=== PATIENT | female | born 1930 | race Caucasian/White ===

== ENCOUNTER 2016-11-29 21:17 | Inpatient (IN) | payer OTHER ==
--- NOTE | 2016-11-29 21:33 | PROVIDER DOCUMENTATION ---
HPI-General Adult - General Stated Complaint: from [facility], abnormal labs, vaginal bleeding Time Seen by Provider: 11/29/16 21:23 Source: patient, EMS Allergies/Adverse Reactions: Patient Allergies Allergy/AdvReac Type Severity Reaction Status Date / Time No Known Allergies Allergy Verified 11/29/16 21:57 Home Medications: Home Medication List Medication Instructions Recorded Confirmed Last Taken Type Acetaminophen [Tylenol] 650 mg PO Q4H PRN PRN 11/29/16 11/29/16 Unknown History Aspirin 81 mg PO DAILY 11/29/16 11/29/16 Unknown History Bisacodyl [Dulcolax] 10 mg AK DIRECTED 11/29/16 11/29/16 Unknown History Carboxymethylcellulos/Glycerin 1 drop BOTH EYES BID 11/29/16 11/29/16 Unknown History [Refresh Optive Eye Drops] Cetirizine [Zyrtec] 10 mg PO DAILY 11/29/16 11/29/16 Unknown History Cran/Vitc/Mannose/Fos/Bromeln 3,875 mg PO BID 11/29/16 11/29/16 Unknown History [Uti-Stat Liquid] Diphenhydramine [Benadryl] 25 mg PO Q6H PRN PRN 11/29/16 11/29/16 Unknown History Docusate Sodium 100 mg PO BID 11/29/16 11/29/16 Unknown History Furosemide [Lasix] 40 mg PO DAILY 11/29/16 11/29/16 Unknown History Glycerin/Witch Eula Cylinder [Medi 1 each TP PRN PRN 11/29/16 11/29/16 Unknown History Pads] Guaifenesin/Pse E.r. [Mucinex D] 1 each PO DAILY 11/29/16 11/29/16 Unknown History Hydrocodone/APAP 10 mg/325 mg 1 each PO TID 11/29/16 11/29/16 Unknown History [[place]-10] Hydrocortisone Acetate [Anucort-Hc] 25 mg AK Q8H PRN PRN 11/29/16 11/29/16 Unknown History Ipratropium/Albuterol Sulfate 3 ml IH TID 11/29/16 11/29/16 Unknown History [Iprat-Albut 0.5-3(2.5) mg/3 ml] Lidocaine 5% Patch [Lidoderm] 1 each TOP DAILY 11/29/16 11/29/16 Unknown History Magnesium Hydroxide [Milk of 30 ml PO QAM PRN PRN 11/29/16 11/29/16 Unknown History Magnesia] Meclizine [Antivert] 25 mg PO DAILY 11/29/16 11/29/16 Unknown History Melatonin 3 mg PO QHS 11/29/16 11/29/16 Unknown History Nitrofurantoin Macrocrystal 100 mg PO BID 11/29/16 11/29/16 Unknown History [Nitrofurantoin] Nystatin Powder [Mycostatin Powder] 1 applicatn TOP BID 11/29/16 11/29/16 Unknown History Ondansetron HCl [Zofran] 4 mg PO Q4H PRN PRN 11/29/16 11/29/16 Unknown History Paroxetine [Paxil] 10 mg PO BID 11/29/16 11/29/16 Unknown History Polyethylene Glycol 3350 [Miralax] 17 gm PO 11/29/16 Unknown History Potassium Chloride E.r. [Klor-Con] 20 meq PO DAILY 11/29/16 11/29/16 Unknown History Pravastatin Sodium 40 mg PO HS 11/29/16 11/29/16 Unknown History Pregabalin [Lyrica] 75 mg PO QHS 11/29/16 11/29/16 Unknown History Simethicone [Gas-X] 250 mg PO PRN PRN 11/29/16 11/29/16 Unknown History - History of Present Illness -Gen Adult Nature of Presenting Problems: Pt is a 86 yof who presents to ER via EMS from care home. EMS was called by care home after pt's labs came back tonight and indicated abnormal results. Pt also complains of vaginal bleeding that she reports started "this afternoon. " Pt denies any pain at this time. Location of Pain/Injury: reports: none Pain Radiation: reports: no radiation Quality of Pain: reports: none Onset/Duration: reports: this afternoon Timing: reports: still present Associated Symptoms: reports: genitourinary problems (vaginal bleeding), trouble walking, other (abnormal lab results). denies: anxiety, arm pain, back/ neck pain, chest pain, constipation, cough, diarrhea, dizziness, EENT symptoms, fatigue, fever/chills, headaches, heartburn, loss of appetite, muscle aches, sinus congestion/drainage, nausea, shortness of breath, swelling/mass in abdomen , vomiting Review of Systems - Adult - REVIEW OF SYSTEMS - ADULT Constitutional: denies: chills, fever, fatique, night sweats Eyes: reports: no symptoms reported Ears, Nose, Mouth & Throat: reports: no symptoms reported Cardiovascular: reports: no symptoms reported Respiratory: reports: no symptoms reported Gastrointestinal: reports: no symptoms reported Genitourinary: reports: other (vaginal bleeding). denies: see HPI, dysuria, discharge, frequency, flank pain, frequent UTI's, hematuria, hesitency, incontinence, urinary retention, urgency Musculoskeletal: reports: no symptoms reported Integumentary: reports: no symptoms reported Neurological: reports: no symptoms reported Psychiatric: reports: no symptoms reported Endocrine: reports: no symptoms reported Hematologic/Lymphatic: reports: no symptoms reported Allergic/Immunologic: reports: no symptoms reported All Other Systems: Reviewed and Negative Past History - Adult - PAST MEDICAL HISTORY-ADULT Review of Records: reports: Nursing Assessment Review, Medications Reviewed Cardiovascular: reports: HTN Additional History: cholesterol, depression, chronic hip pain, - PRIOR SURGERIES/PROCEDURES Surgical/Procedure History: reports: appendectomy, hernia repair, other (ortho, tubal) - IMMUNIZATION STATUS Childhood Immunizations: See Nurse Assessment Flu Vaccine: See Nurse Assessment Physical Exam-General - PHYSICAL EXAM-ADULT Initial Vital Signs Reviewed: Yes - CONSTITUTIONAL General Appearance: appears well, alert, no apparent distress - NECK Neck: non-tender, full range of motion, supple - RESPIRATORY Respiratory: chest non-tender, lungs clear, normal breath sounds - CARDIOVASCULAR Cardiovascular: normal peripheral pulses, regular rate, rhythm - NEUROLOGIC Neurologic: grossly normal, no motor/sensory deficits - PSYCHIATRIC Psych/Mental Status: normal mood/affect, normal thought content, normal thought process, oriented x 3 Progress - PLAN OF CARE/RESULTS Progress/Plan/Lab Results: 2322: Pt's CT results came back, indicating pt has diverticulosis. Dr. Josh mott hospitalist. Vital Signs - 24 hr 11/29/16 11/29/16 21:28 23:08 Temperature 98.8 F Pulse Rate 83 84 Respiratory 14 18 Rate Blood Pressure 110/67 138/65 O2 Sat by Pulse 98 98 Oximetry Orders Category Date Time Status Cardiac Monitoring DIRECTED Care 11/29/16 21:29 Active Saline Loc NOW Care 11/29/16 21:29 Active ABDOMEN/PELVIS W/O CONTRAST [CT] Stat Exams 11/29/16 21:30 Taken AMYLASE [CHEM] Stat Lab 11/29/16 21:40 Completed ANTIBODY IDENTIFICATION [BBK] Stat Lab 11/29/16 21:40 Results CBC WITH ELECTRONIC DIFF [HEME] Stat Lab 11/29/16 21:40 Completed CK PROFILE [SP CHEM] Stat Lab 11/29/16 21:40 Completed COMPREHENSIVE METABOLIC PANEL [CHEM] Stat Lab 11/29/16 21:40 Completed LIPASE [CHEM] Stat Lab 11/29/16 21:40 Completed LRPC (RED CELLS) [BBK] Stat Lab 11/29/16 21:40 Results MAGNESIUM [CHEM] Stat Lab 11/29/16 21:40 Completed PRO B-NATRIURETIC PEPTIDE Stat Lab 11/29/16 21:40 Completed PROTIME WITH INR [COAG] Stat Lab 11/29/16 21:40 Completed PTT [COAG] Stat Lab 11/29/16 21:40 Completed TROPONIN T Stat Lab 11/29/16 21:40 Completed TYPE & SCREEN [BBK] Stat Lab 11/29/16 21:40 Results URINALYSIS [URINALYSIS] Stat Lab 11/29/16 22:11 Completed URINE MANUAL MICROSCOPIC [URINALYSIS] Stat Lab 11/29/16 22:11 Completed CefTRIAXONE 1 GM/NS [Rocephin 1 gm/Ns] 50 ml Med 11/29/16 23:21 Active IV NOW EKG [EKG] Stat Ther 11/29/16 21:29 Ordered Laboratory Tests 11/29/16 11/29/16 11/29/16 21:40 21:40 21:40 WBC 10.45 RBC 2.41 L Hgb 7.3 L Hct 24.5 L MCV 101.7 H MCH 30.3 MCHC 29.8 L RDW Std Deviation 15.9 H Plt Count 210 MPV 10.0 Immature Gran % (Auto) 0.3 Neut % (Auto) 64.4 Lymph % (Auto) 16.7 L [place] % (Auto) 14.4 H Eos % (Auto) 3.9 Baso % (Auto) 0.3 Immature Gran # (Auto) 0.03 Neut # (Auto) 6.72 H Lymph # (Auto) 1.75 [place] # (Auto) 1.51 H Eos # (Auto) 0.41 Baso # (Auto) 0.03 PT INR PTT (Actin FS) Sodium 140 Potassium 4.8 Chloride 95 L Carbon Dioxide 32 Anion Gap 13 BUN 39 H Creatinine 1.6 H Estimated GFR/1.73 m2 30 BUN/Creatinine Ratio 24 Glucose 98 Calculated Osmolality 289 Calcium 9.1 Magnesium 2.3 Total Bilirubin 0.51 AST 21 ALT 16 Alkaline Phosphatase 72 Creatine Kinase 70 Troponin T [id number]-L-Eelplduiswk Pept 792 H Total Protein 6.6 Albumin 3.2 L Globulin 3.4 Albumin/Globulin Ratio 0.9 Amylase 49 Lipase 33 Urine Source Urine Color Urine Turbidity Urine pH Ur Specific [place] Urine Protein Ur Glucose (Stick) Ur Ketones (Stick) Urine Blood Urine Nitrite Urine Bilirubin Urobilinogen Dipstick Urine Leukocytes Urine WBC (Auto) Urine RBC (Auto) U Epithel Cells (Auto) Urine Bacteria (Auto) Urine Crystals Small Round Cells Urine Casts Urine Yeast-like Cells Blood Type Antibody Screen Antibody Identification Crossmatch ([facility]) 11/29/16 11/29/16 11/29/16 21:40 21:40 21:40 WBC RBC Hgb Hct MCV MCH MCHC RDW Std Deviation Plt Count MPV Immature Gran % (Auto) Neut % (Auto) Lymph % (Auto) [place] % (Auto) Eos % (Auto) Baso % (Auto) Immature Gran # (Auto) Neut # (Auto) Lymph # (Auto) [place] # (Auto) Eos # (Auto) Baso # (Auto) PT 11.0 INR 1.04 PTT (Actin FS) 24.5 Sodium Potassium Chloride Carbon Dioxide Anion Gap BUN Creatinine Estimated GFR/1.73 m2 BUN/Creatinine Ratio Glucose Calculated Osmolality Calcium Magnesium Total Bilirubin AST ALT Alkaline Phosphatase Creatine Kinase Troponin T < 0.010 Hbr-U-Modwdvntpcf Pept Total Protein Albumin Globulin Albumin/Globulin Ratio Amylase Lipase Urine Source Urine Color Urine Turbidity Urine pH Ur Specific [place] Urine Protein Ur Glucose (Stick) Ur Ketones (Stick) Urine Blood Urine Nitrite Urine Bilirubin Urobilinogen Dipstick Urine Leukocytes Urine WBC (Auto) Urine RBC (Auto) U Epithel Cells (Auto) Urine Bacteria (Auto) Urine Crystals Small Round Cells Urine Casts Urine Yeast-like Cells Blood Type O POSITIVE Antibody Screen POSITIVE Antibody Identification UNDERTERMINED SPECIFICITY AB Crossmatch ([facility]) See Detail 11/29/16 22:11 WBC RBC Hgb Hct MCV MCH MCHC RDW Std Deviation Plt Count MPV Immature Gran % (Auto) Neut % (Auto) Lymph % (Auto) [place] % (Auto) Eos % (Auto) Baso % (Auto) Immature Gran # (Auto) Neut # (Auto) Lymph # (Auto) [place] # (Auto) Eos # (Auto) Baso # (Auto) PT INR PTT (Actin FS) Sodium Potassium Chloride Carbon Dioxide Anion Gap BUN Creatinine Estimated GFR/1.73 m2 BUN/Creatinine Ratio Glucose Calculated Osmolality Calcium Magnesium Total Bilirubin AST ALT Alkaline Phosphatase Creatine Kinase Troponin T [id number]-Zsebpdxrtru Pept Total Protein Albumin Globulin Albumin/Globulin Ratio Amylase Lipase Urine Source CLEAN CATCH Urine Color BROWN Urine Turbidity TURBID Urine pH 6.5 Ur Specific [place] 1.025 Urine Protein 200 A Ur Glucose (Stick) NEGATIVE Ur Ketones (Stick) NEGATIVE Urine Blood LARGE A Urine Nitrite NEGATIVE Urine Bilirubin NEGATIVE Urobilinogen Dipstick NORMAL Urine Leukocytes LARGE A Urine WBC (Auto) <10 Urine RBC (Auto) TNTC A U Epithel Cells (Auto) >10 A Urine Bacteria (Auto) NEGATIVE Urine Crystals NONE SEEN Small Round Cells NONE SEEN Urine Casts NONE SEEN Urine Yeast-like Cells NONE SEEN Blood Type Antibody Screen Antibody Identification Crossmatch ([facility]) - EKG 1 Time of EKG reading by physician:: 21:56 EKG Read and Signed by:: Abdullahi Moreno EKG Interpretation (*Must complete 3 of following elements*): Abnormal (Low voltage QRS; Incomplete RBBB; ST & T wave abnormality, consider anterior ischemia) - CT/MRI 1 CT Study: Abdomen, Pelvis Impression: See EMR Report (Single gallstone similar to the prior exam. No inflammation; Stable L adrenal nodule; Constipation; No bowel obstruction; No abscess; Hysterectomy; Questionable hyperdense material in the urinary bladder, possible small amount of blood. Diverticulosis.) CT Results: See report - CONSULTS/PCP/HOSPITALIST Notification #1 *Consult/PCP/Hospitalist*: Dr. Mai (Hospitalist) Time Discussed: 23:38 Consult Disposition: Admit Departure - Departure Time of Disposition Order: 23:22 DIAGNOSIS: Diverticulosis Qualifiers: Diverticulosis site: unspecified location Diverticulosis bleeding: diverticulosis with bleeding Qualified Code(s): K57.91 - Diverticulosis of intestine, part unspecified, without perforation or abscess with bleeding UTI (urinary tract infection) Qualifiers: Urinary tract infection type: site unspecified Hematuria presence: with hematuria Qualified Code(s): N39.0 - Urinary tract infection, site not specified ; R31.9 - Hematuria, unspecified Disposition: ADMITTED INPATIENT 09 Certified Medical Emergency: Emergent Condition: Stable Referrals: None,PCP [Primary Care Provider] - Attestation - Scribe Verification/Attestation Scribe:: Elvin Martins Acting as Scribe for:: Abdullahi Moreno Scribe documention review:: This chart was documented by a scribe and accurately reflects the service the provider performed and the decisions made by the provider.
[2016-11-29 21:51] LABS: MANUAL DIFF NEEDED? NO
[2016-11-29 22:02] LABS: BASO% 0.3 % (0.0-0.8); EOS# 0.41 X1000 (0.0-0.7); EOS% 3.9 % (0.0-10.0); HEMATOCRIT 24.5 % (37.0-47.0); HEMOGLOBIN 7.3 g/dL (12.0-16.0); IMM GRAN# 0.03 X1000 (0.0-0.04); IMM GRAN% 0.3 % (0.0-0.5); LYMPH# 1.75 X1000 (1.2-3.4); LYMPH% 16.7 % (20.5-51.1); MCH 30.3 PG (27-31); MCHC 29.8 g/dL (33-37); MCV 101.7 FL (81-99); MONO# 1.51 X1000 (0.11-0.59); MONO% 14.4 % (1.7-9.3); NEUT% 64.4 % (42.2-75.2); PLT 210 X1000 (130-400); RBC 2.41 XMIL (4.2-5.4)
[2016-11-29 22:05] LABS: INR 1.04; PTT 24.5 Seconds (22.0-36.0)
[2016-11-29 22:19] LABS: URINE SOURCE CLEAN CATCH
[2016-11-29 22:23] LABS: ALBUMIN 3.2 g/dL (3.5-5.0); CALCIUM 9.1 mg/dL (8.8-10.2); MAGNESIUM 2.3 mg/dL (1.5-2.7); POTASSIUM 4.8 mmol/L (3.5-5.1); TOTAL BILIRUBIN 0.51 mg/dL (0.20-1.00); TOTAL PROTEIN 6.6 g/dL (6.3-8.3)
[2016-11-29 22:40] LABS: BILIRUBIN URINE NEGATIVE (NEGATIVE); BLOOD URINE LARGE (NEGATIVE); COLOR BROWN; GLUCOSE URINE NEGATIVE (NEGATIVE); LEUKOCYTES URINE LARGE (NEGATIVE); NITRITE URINE NEGATIVE (NEGATIVE); PH URINE 6.5; PROTEIN URINE 200 mg/dL (NEGATIVE); TURBIDITY URINE TURBID (CLEAR); UROBILINOGEN URINE NORMAL (NORMAL)
[2016-11-29 22:45] LABS: URINE MICRO REVIEW NEEDED? YES
[2016-11-29 22:46] LABS: UR EPITHELIAL CELLS >10 /HPF (<10); URINE BACTERIA NEGATIVE /HPF; URINE WBC <10 /HPF (<10)
[2016-11-29 22:55] LABS: SP GRAVITY URINE 1.025
[2016-11-29 22:59] LABS: URINE CASTS NONE SEEN; URINE RBC TNTC /HPF (<10)
[2016-11-29 23:00] LABS: URINE CRYSTALS NONE SEEN; URINE SMALL ROUND CELLS NONE SEEN
[2016-11-29] MEDS ORDERED: ROCEPHIN 1 GM/NS 50 ML IV ONE (23:21)
[2016-11-30] MEDS ORDERED: NS 1,000 ML IV ONE (00:02)
[2016-11-30] MEDS ORDERED: TYLENOL 10 MG/KG PO PRN (00:40)
[2016-11-30] MEDS ORDERED: MILK OF MAGNESIA PO PRN (00:40)
[2016-11-30] MEDS ORDERED: NORCO-10 PO PRN (00:40)
[2016-11-30] MEDS ORDERED: ANUSOL-HC SUPP PR PRN (00:40)
[2016-11-30] MEDS ORDERED: BENADRYL PO PRN (00:40)
[2016-11-30] MEDS ORDERED: DULCOLAX PR SCH (00:45)
--- NOTE | 2016-11-30 06:21 | HISTORY AND PHYSICAL ---
CHIEF COMPLAINT: Abnormal labs at [facility]. HISTORY OF PRESENT ILLNESS: This is an 86-year-old female, who [facility] She had labs that were indicated as normal. She stated that she had a lot of bleeding this afternoon. Blood in her urine. She states that she only has 1 kidney, although the reason for her nephrectomy is unclear. She states that she has frequent urinary tract infections and is on chronic nitrofurantoin treatment for these. She denied any overt symptoms other than difficulty walking. However, the patient is somewhat obese and does not seem to ambulate frequently. She denied any chest pain, constipation, dysuria, cough, diarrhea, dizziness, fever, chills, fatigue, nausea, vomiting, diarrhea. Laboratory data was completed in the emergency room which showed the patient to be anemic with a hemoglobin of 7.3 and hematocrit 24.5. Also a BUN of 39 and a creatinine of 1.6. The patient appears to have a baseline creatinine around 1. Urine also showed large amounts of blood with leukocytes. She will be admitted to the medical floor for further evaluation and treatment. PAST MEDICAL HISTORY: 1. Hypertension. 2. Rheumatoid arthritis. 3. Hyperlipidemia. 4. Peripheral neuropathy. Denies cardiac disease or diabetes mellitus. 5. Morbid obesity. PAST SURGICAL HISTORY: 1. Hysterectomy. 2. Appendectomy. 3. Hernia repair. 4. Left knee surgery. 5. Left nephrectomy for unclear reasons. The family states that had to be emergently removed. There is no history of cancer apparently. SOCIAL HISTORY: Stopped smoking 25+ years ago. Denies alcohol or illicit drugs. Lives at [facility] in [place]. FAMILY HISTORY: Father had coronary artery disease. Daughter has hypertension. Two brothers with coronary artery disease. ALLERGIES: No known drug allergies. HOME MEDICATIONS: 1. Zofran 4 mg p.o. q.4 p.r.n. 2. Potassium chloride 20 mEq p.o. daily. 3. DuoNeb 3 mL inhalation t.i.d. 4. Milk of Magnesia 30 mL p.o. q.a.m. 5. Medipads 1 topically p.r.n. 6. Simethicone 250 mg p.o. p.r.n. 7. Benadryl 25 mg p.o. q.6 p.r.n. 8. Anucort-HC 25 mg per rectum q.8 p.r.n. 9. UTI-Stat liquid 3875 mg p.o. b.i.d. 10. Tylenol 650 mg p.o. q.4 p.r.n. 11. Refresh Optive eye drops 1 drop per eye b.i.d. 12. Pravastatin 40 mg p.o. daily. 13. Paxil 10 mg p.o. b.i.d. 14. Nystatin 1 application topically b.i.d. 15. Nitrofurantoin 100 mg p.o. b.i.d. 16. Mucinex D 1 p.o. daily. 17. Melatonin 3 mg p.o. at bedtime. 18. Antivert 25 mg p.o. daily. 19. Lyrica 75 mg p.o. at bedtime. 20. Lidoderm 5% patch 1 topically daily p.r.n. 21. [place] 10 mg 1 p.o. t.i.d. 22. Lasix 40 mg p.o. daily. 23. Docusate sodium 100 mg p.o. b.i.d. 24. Zyrtec 10 mg p.o. daily. 25. Dulcolax suppository 10 mg per rectum p.o. p.r.n. 26. Aspirin 81 mg p.o. daily. 27. MiraLAX 17 g p.o. daily. REVIEW OF SYSTEMS: Fourteen point review of systems conducted with the patient. All negative except for listed above in the HPI. PHYSICAL EXAMINATION: VITAL SIGNS: Temperature 98.2, pulse 79, respirations 23, blood pressure 106/49, oxygen saturation 98% on 3 L nasal cannula. GENERAL: Obese, 86-year-old, female, lying in the ER stretcher. No acute distress. Answers all questions appropriately. HEENT: Head is atraumatic, normocephalic. Pupils equal, round, reactive to light. Extraocular eye movement intact. Sclerae is anicteric. Conjunctivae is pale. Oral mucosa is moist. NECK: Supple. No JVD. Trachea is midline. CARDIAC: Regular rate and rhythm. S1-S2 appreciated. No murmurs, gallops, rubs. LUNGS: Diminished bilaterally. No rhonchi, wheezes, rales. Otherwise clear to auscultation. ABDOMEN: Protuberant soft, nondistended, nontender. Bowel sounds present in all 4 quadrants. Normoactive. No pulsatile mass. No organomegaly. EXTREMITIES: No clubbing, cyanosis, edema. NEUROLOGICAL: Cranial nerves 2-12 grossly intact. Alert and oriented x3. SKIN: Warm, dry and intact. No acute lesions or rash. DIAGNOSTIC DATA: CT of the abdomen and pelvis. Single gallstone similar to a previous exam. A left adrenal nodule. Constipation noted. No bowel obstruction. Questionable hyperdense material in the bladder. Possible it is blood and also diverticulosis per the CT report. LABORATORY DATA: WBC 10.45, hemoglobin 7.3, hematocrit 24.5, platelet count 210. PT 11. INR 1.04, PTT 24.5. Sodium 140, potassium 4.8, chloride 95, carbon dioxide 32, BUN 39, creatinine 1.6, glucose 98. Urine, large amounts of blood, large amounts of leukocytes. Too numerous to count Rbc's. ASSESSMENT: 1. Cystitis. 2. Anemia secondary to #1. 3. Acute kidney injury. 4. Questionable urinary tract infection. 5. Hypertension. 6. Hyperlipidemia. PLAN: Admit patient to the medical floor. Will transfuse 1 unit of packed red blood cells and monitor serial hemoglobin and hematocrit. Check ferritin, folate, iron with total iron binding capacity, vitamin B12. Rocephin 1 g was given in the emergency room. Continue Rocephin q.[address] Leif Pope to see the patient related to cystitis and bleeding. He did her previous nephrectomy. Type and screen 2 additional units packed red blood cells for possible use. Recheck laboratory data in a.m. Continue patient's home medications except for Lasix for fluid hydration reasons. We will hold this in attempt to improve her BUN and creatinine back to baseline. Further recommendations per patient clinical course. Dictated by ROBERT Solomon for Max Mai MD
--- NOTE | 2016-11-30 06:43 | EKG Report ---
Test Performed on : 11/29/2016 9:54:09 PM Test Reason : Chest Pain Blood Pressure : / mmHG Vent. Rate : 086 BPM Atrial Rate : 086 BPM P-R Int : 234 ms QRS Dur : 110 ms QT Int : 386 ms P-R-T Axes : 076 036 010 degrees QTc Int : 461 ms Sinus rhythm. with 1st degree AV block. Low voltage QRS Incomplete right bundle branch block ST & T wave abnormality, consider anterior ischemia Abnormal ECG When compared with ECG of 30-MAR-2014 23:20, [place] interval has increased Incomplete right bundle branch block has replaced Right bundle branch block Unconfirmed Result
[2016-11-30] MEDS ORDERED: KLOR-CON PO SCH (09:00)
[2016-11-30 09:13] LABS: MANUAL DIFF NEEDED? NO
[2016-11-30 09:21] LABS: BASO% 0.4 % (0.0-0.8); EOS# 0.35 X1000 (0.0-0.7); EOS% 4.2 % (0.0-10.0); HEMATOCRIT 27.2 % (37.0-47.0); HEMOGLOBIN 8.3 g/dL (12.0-16.0); IMM GRAN# 0.02 X1000 (0.0-0.04); IMM GRAN% 0.2 % (0.0-0.5); LYMPH# 1.13 X1000 (1.2-3.4); LYMPH% 13.5 % (20.5-51.1); MCH 30.5 PG (27-31); MCHC 30.5 g/dL (33-37); MONO# 0.77 X1000 (0.11-0.59); MONO% 9.2 % (1.7-9.3); MPV 9.4 FL (7.4-10.4); NEUT% 72.5 % (42.2-75.2); PLT 194 X1000 (130-400); RBC 2.72 XMIL (4.2-5.4)
[2016-11-30] MEDS: DUONEB (A & A) INH SCH ×3 (09:22→19:37)
[2016-11-30 09:31] LABS: CALCIUM 9.1 mg/dL (8.8-10.2); POTASSIUM 4.1 mmol/L (3.5-5.1)
[2016-11-30 09:37] LABS: IRON SATURATION 8 %; TIBC 208 ug/dL; TOTAL IRON 17 ug/dL (49-151); UNBOUND IRON 191 ug/dL (112-346)
[2016-11-30 10:04] LABS: FERRITIN 432 ng/mL (13-150)
[2016-11-30] MEDS: COLACE PO SCH ×2 (10:18→21:42)
[2016-11-30] MEDS: PAXIL PO SCH ×2 (10:19→21:42)
[2016-11-30] MEDS: ASPIRIN PO SCH (10:19)
[2016-11-30] MEDS: ANTIVERT PO SCH (10:19)
[2016-11-30] MEDS: TEARISOL OPH SOLUTION BOTH EYES SCH ×2 (10:19→21:43)
[2016-11-30] MEDS: ZYRTEC PO SCH (10:19)
[2016-11-30] MEDS: MYCOSTATIN POWDER TOP SCH ×2 (10:20→21:51)
[2016-11-30] MEDS: LIDODERM TOP SCH (10:20)
[2016-11-30] MEDS: PATIENT'S OWN MED PO SCH ×2 (10:20→21:45)
[2016-11-30] MEDS ORDERED: PNEUMOVAX 23 IM ONE (11:00)
--- NOTE | 2016-11-30 11:21 | Diag Imaging Result Document ---
PROCEDURE NAME: ABDOMEN/PELVIS W/O CONTRAST - 11/29/2016 CT ABDOMEN AND PELVIS WITHOUT CONTRAST: TECHNIQUE: No intravenous contrast administered due to elevated creatinine/diminished GFR. A dose reduction protocol was used. Compared with 05/18/2016. FINDINGS: There are no acute abnormalities of the liver, spleen, or pancreas identified. There is a 2.3-cm left adrenal nodule which is stable. There is a small calcified gallstone in the gallbladder similar to the previous exam. The gallbladder is not distended, and there is no pericholecystic inflammation identified. There has been previous left nephrectomy. There is mild hydronephrosis with hydroureter on the right. There is no renal stone identified. There is possibly some dense material in the posterior urinary bladder lumen. The possibility of a small mild amount of blood in the urinary bladder lumen or even a mass lesion in the urinary bladder cannot be excluded. There is no evidence of bowel obstruction. There is colonic diverticulosis. There is no evidence of diverticulitis. No free air, substantial free fluid, or abscess identified. IMPRESSION: 1. Status post left nephrectomy. 2. Mild hydronephrosis with hydroureter on the right. No renal stone identified. Apparent small amount of hyperdense material in urinary bladder lumen which may relate to a small amount of blood in the lumen or possibly a urinary bladder mass lesion. Correlation with clinical evaluation is recommended. 3. No bowel obstruction. Uncomplicated colonic diverticulosis The on-call radiologist provided preliminary results at 11:02 p.m. on 11/29/2016.
[2016-11-30] MEDS: NS 1,000 ML IV SCH (14:33)
[2016-11-30] MEDS: VENOFER 200 MG in NS 150 ML IV SCH (14:33)
[2016-11-30] MEDS: FOLIC ACID PO SCH (14:33)
[2016-11-30] MEDS: PRAVACHOL PO SCH (21:42)
[2016-11-30] MEDS: MELATONIN PO SCH (21:42)
[2016-11-30] MEDS: LYRICA PO SCH (21:42)
[2016-11-30] MEDS: ZOFRAN IV PRN (21:43)
[2016-11-30] MEDS: TYLENOL PO PRN (21:43)
[2016-11-30] MEDS: ROCEPHIN 1 GM/NS 50 ML IV SCH (23:15)
[2016-12-01 06:07] LABS: HEMATOCRIT 23.6 % (37.0-47.0); HEMOGLOBIN 7.1 g/dL (12.0-16.0); HEMOGLOBIN A1C > 4.8 % (4.8-6.0); MCH 30.6 PG (27-31); MCHC 30.1 g/dL (33-37); MCV 101.7 FL (81-99); MPV 9.5 FL (7.4-10.4); RBC 2.32 XMIL (4.2-5.4)
[2016-12-01 06:12] LABS: POTASSIUM 4.3 mmol/L (3.5-5.1)
--- NOTE | 2016-12-01 06:14 | CONSULTATION ---
DATE OF CONSULTATION: 11/30/2016 CONSULTING PHYSICIAN: Dr. Herbert with hospitalist service. REASON FOR CONSULTATION: Gross hematuria, possible cystitis. HISTORY OF PRESENT ILLNESS: An 86-year-old female who is known to me secondary to a history of spontaneous left renal bleed requiring emergent open left nephrectomy in 2013. She was last seen by me in October, with office renal ultrasound which at the time did not reveal any evidence of hydronephrosis. At that time she was doing well without hematuria. She missed her appointment a month ago due to "transportation reasons." She reports intermittent right flank pain over the last 6 months. She also reports intermittent hematuria over a few days or maybe "longer than that." She reports the bleeding worsened on the day of presentation. She had blood work drawn with low hematocrit and elevated creatinine. She was transferred to the ER. There she had a CT of abdomen and pelvis without contrast performed revealing mild hydroureteronephrosis on the right and hyperdense material in the bladder. She denies weight loss, nausea and vomiting. PAST MEDICAL HISTORY: 1. Hypertension. 2. Hyperlipidemia. 3. Morbid obesity. 4. Rheumatoid arthritis. 5. Neuropathy. PAST SURGICAL HISTORY: 1. Left open nephrectomy. 2. Hysterectomy. 3. Appendectomy. 4. Hernia repair. 5. Knee surgery. ALLERGIES: No known drug allergies. HOME MEDICATIONS: 1. Potassium chloride. 2. DuoNeb. 3. Milk of Magnesia. 4. Simethicone. 5. Benadryl. 6. Tylenol. 7. Pravastatin. 8. Paxil. 9. Nitrofurantoin. 10. Melatonin. 11. Antivert. 12. Lyrica. 13. [place]. 14. Lasix. 15. Zyrtec. 16. Dulcolax. 17. Aspirin. 18. MiraLAX. SOCIAL HISTORY: She is a former smoker, denies alcohol or drug use. FAMILY HISTORY: She denies malignancies. REVIEW OF SYSTEMS: Reviewed 12 systems and are negative except as in HPI. PHYSICAL EXAMINATION: Vital Signs: Temperature 99 degrees. Pulse 86. BP 129/54. General: No acute distress. HEENT: Normocephalic, atraumatic. Cardiovascular: Regular rhythm. Pulmonary: Breath sounds. Abdomen: Tender, distended, protuberant, well healed midline scar. Genitourinary: Bladder is nontender to palpation, [place] catheter placed, draining grossly bloody urine without clots. Dermatologic: No obvious skin rashes noted. Neurologic: Alert and oriented x3. Psychiatric: Appropriate mood and affect. PERTINENT LABORATORY DATA: White cell count of 8000, hematocrit 27, creatinine 1.5, urinalysis revealing a large amount of blood and leukocytes, but no bacteria and nitrite negative. PERTINENT IMAGES: CT abdomen and pelvis on 11/29/2016 as per HPI. 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 Evidence of hydroureteronephrosis and suspicion for a mass. I discussed with the patient workup with cystoscopy, right retrograde pyelogram, possible diagnostic ureteroscopy with biopsy. We discussed risks of the procedure including, but not limited to, bleeding, infection, injury to the bladder, injury to adjacent structures, inability to address all the issues in 1 setting and need for additional interventions. She voiced understanding and wished to proceed. PLAN: NPO after midnight to OR tomorrow for cystoscopy, right retrograde pyelogram, right diagnostic ureteroscopy, and possible right ureteral stent.
[2016-12-01] MEDS: NS 1,000 ML IV SCH ×2 (07:20)
[2016-12-01] MEDS: LIDODERM TOP SCH (09:28)
[2016-12-01] MEDS: DUONEB (A & A) INH SCH ×3 (09:45→19:20)
[2016-12-01] MEDS ORDERED: DIPRIVAN 1% ONE (14:20)
[2016-12-01] MEDS ORDERED: FENTANYL ONE (14:20)
[2016-12-01] MEDS ORDERED: NEOSTIGMINE ONE (14:57)
[2016-12-01] MEDS ORDERED: NORCURON ONE (14:57)
[2016-12-01] MEDS ORDERED: ROBINUL ONE (14:57)
[2016-12-01] MEDS ORDERED: ZOFRAN ONE (14:57)
[2016-12-01] MEDS ORDERED: DECADRON ONE (14:58)
[2016-12-01] MEDS ORDERED: QUELICIN (DOSE) ONE (14:58)
[2016-12-01] MEDS ORDERED: XYLOCAINE-MPF 2% ONE (14:58)
--- NOTE | 2016-12-01 15:16 | Diag Imaging Result Document ---
PROCEDURE NAME: RETROGRADES 2 OR 3 FILMS - 12/01/2016 RETROGRADE PYELOGRAM, 14 IMAGES: Contrast was injected in the right ureteral orifice. FINDINGS: There is some clubbing of the calices; however, no definite obstructing lesion is identified. At the termination of the procedure, there is placement of a stent on the right. IMPRESSION: Right ureteral stent placement.
[2016-12-01] MEDS ORDERED: NORCO-5 PO PRN (15:29)
[2016-12-01] MEDS: FOLIC ACID PO SCH (15:48)
[2016-12-01] MEDS: VENOFER 200 MG in NS 150 ML IV SCH (15:48)
[2016-12-01] MEDS: PAXIL PO SCH ×3 (15:49→23:23)
[2016-12-01] MEDS: ASPIRIN PO SCH (15:49)
[2016-12-01] MEDS: ANTIVERT PO SCH (15:49)
[2016-12-01] MEDS: ZYRTEC PO SCH (15:49)
[2016-12-01] MEDS: COLACE PO SCH ×3 (15:49→23:23)
[2016-12-01] MEDS: MYCOSTATIN POWDER TOP SCH (15:51)
[2016-12-01] MEDS: TEARISOL OPH SOLUTION BOTH EYES SCH ×3 (15:51→23:25)
[2016-12-01] MEDS: PATIENT'S OWN MED PO SCH ×2 (15:51→23:26)
[2016-12-01] MEDS: TYLENOL PO PRN (15:59)
--- NOTE | 2016-12-01 17:21 | PROGRESS NOTE ---
DATE: 12/01/2016 SUBJECTIVE: The patient continues to have gross hematuria. She has no other complaints. OBJECTIVE: Vital Signs: Temperature 97.3 degrees, blood pressure 118/53, heart rate 104, respirations 18, O2 saturation 95% on 2 L nasal cannula. General: This is a morbidly obese, elderly female, lying in bed, in no acute distress. Head: Normocephalic, atraumatic. Heart: S1, S2. Normal. Regular rate and rhythm. Lungs: Clear to auscultation bilaterally. Abdomen: Positive bowel sounds. Soft, obese, nontender, nondistended. Extremities: +1 edema. Neurologic: The patient is alert and oriented. She is hard of hearing. LABS: White blood cell count 9.4, hemoglobin 7.1, hematocrit 23, platelets 192,000 sodium 139, potassium 4.3, chloride 100, CO2 28, BUN 31, creatinine 1.2, glucose 102. ASSESSMENT AND PLAN: 1. Gross hematuria. The patient is scheduled for cystoscopy today. 2. Anemia of acute blood loss. Will transfuse the patient with 1 unit of packed red blood cells. The most likely source of the patient's blood loss is the urinary tract. 3. Morbid obesity. Aware. 4. Asthma. Continue with bronchodilator therapy. 5. Deep vein thrombosis prophylaxis. Continue with SCDs.
[2016-12-01] MEDS: ROCEPHIN 1 GM/NS 50 ML IV SCH (23:07)
[2016-12-01] MEDS: LYRICA PO SCH ×2 (23:16→23:24)
[2016-12-01] MEDS: PRAVACHOL PO SCH ×2 (23:17→23:25)
[2016-12-01] MEDS: PERIDEX MT SCH (23:23)
[2016-12-01] MEDS: MELATONIN PO SCH (23:25)
[2016-12-02] MEDS: MYCOSTATIN POWDER TOP SCH ×3 (01:06→20:21)
[2016-12-02 06:10] LABS: MANUAL DIFF NEEDED? NO
[2016-12-02 06:22] LABS: BASO% 0.1 % (0.0-0.8); HEMATOCRIT 25.3 % (37.0-47.0); HEMOGLOBIN 7.7 g/dL (12.0-16.0); IMM GRAN# 0.04 X1000 (0.0-0.04); IMM GRAN% 0.4 % (0.0-0.5); LYMPH# 0.75 X1000 (1.2-3.4); LYMPH% 6.8 % (20.5-51.1); MCH 29.8 PG (27-31); MCHC 30.4 g/dL (33-37); MCV 98.1 FL (81-99); MONO# 0.93 X1000 (0.11-0.59); MONO% 8.4 % (1.7-9.3); MPV 9.9 FL (7.4-10.4); NEUT% 84.3 % (42.2-75.2); PLT 211 X1000 (130-400); RBC 2.58 XMIL (4.2-5.4)
[2016-12-02 06:44] LABS: CALCIUM 9.4 mg/dL (8.8-10.2); POTASSIUM 4.3 mmol/L (3.5-5.1)
[2016-12-02] MEDS: DUONEB (A & A) INH SCH ×3 (10:35→21:41)
[2016-12-02] MEDS: LIDODERM TOP SCH (10:54)
[2016-12-02] MEDS: ASPIRIN PO SCH (10:57)
[2016-12-02] MEDS: PAXIL PO SCH ×2 (10:57→20:21)
[2016-12-02] MEDS: COLACE PO SCH ×2 (10:57→20:21)
[2016-12-02] MEDS: ANTIVERT PO SCH (10:58)
[2016-12-02] MEDS: FOLIC ACID PO SCH (10:59)
[2016-12-02] MEDS: ZYRTEC PO SCH (10:59)
[2016-12-02] MEDS: PERIDEX MT SCH ×2 (10:59→20:20)
[2016-12-02] MEDS: PATIENT'S OWN MED PO SCH ×2 (11:01→22:35)
[2016-12-02] MEDS: VENOFER 200 MG in NS 150 ML IV SCH (14:49)
--- NOTE | 2016-12-02 15:52 | PROGRESS NOTE ---
DATE: 12/02/2016 SUBJECTIVE: The patient is no longer having hematuria. She underwent a cystoscopy yesterday with a right ureteral stent placement. She states that she is feeling a lot better today. OBJECTIVE: Vital Signs: Temperature 98.5 degrees, blood pressure 110/70, heart rate 64, respirations 18, O2 saturations 95% on room air. General: This is a morbidly obese female, lying in bed, in no acute distress. Head: Normocephalic, atraumatic. Heart: S1, S2. Normal. Regular rate and rhythm. Lungs: Mild expiratory wheezes. No crackles. No rales. Abdomen: Positive bowel sounds. Soft, obese, nontender, nondistended. Extremities: +1 pedal edema. No cyanosis. No calf tenderness. Neurologic: The patient is alert and oriented x3. She is hard of hearing. She is able to move all 4 extremities. LABS: White blood cell count 11, hemoglobin 7.7, hematocrit 25, platelets 211,000. Sodium 139, potassium 4.3, chloride 99, CO2 29, BUN 24, creatinine 1.1, glucose 107, calcium 9.4. ASSESSMENT AND PLAN: 1. Status post cystoscopy with bilateral ureteroscopy with a right ureteral stent placement. The patient is no longer having gross hematuria. Her hemoglobin and hematocrit is low but stable. Will continue to follow. Urology is following. 2. Morbid obesity. Aware. 3. Asthma. Continue on supplemental oxygen and bronchodilator therapy. 4. Anemia of acute blood loss. The patient's hemoglobin and hematocrit is stable but low. We will continue to monitor this closely. 5. Acute kidney injury on chronic kidney disease. Slowly improving. 6. Hypertension. Controlled. 7. Neuropathy. Continue on Lyrica. 8. Situational depression. Continue on Paxil. 9. Deep vein thrombosis prophylaxis. Continue with SCDs. 10. Disposition. The patient will be discharged back to the [facility] once cleared by the urologist.
[2016-12-02] MEDS: TEARISOL OPH SOLUTION BOTH EYES SCH ×2 (18:30→20:21)
[2016-12-02] MEDS: LYRICA PO SCH (20:20)
[2016-12-02] MEDS: PRAVACHOL PO SCH (20:20)
[2016-12-02] MEDS: MELATONIN PO SCH (20:20)
[2016-12-02] MEDS: TYLENOL PO PRN (22:35)
[2016-12-02] MEDS: ROCEPHIN 1 GM/NS 50 ML IV SCH (23:39)
[2016-12-03] MEDS: ZOFRAN IV PRN ×2 (01:49→09:02)
[2016-12-03 06:37] LABS: MANUAL DIFF NEEDED? NO
[2016-12-03 07:08] LABS: CALCIUM 9.3 mg/dL (8.8-10.2); POTASSIUM 4.1 mmol/L (3.5-5.1)
[2016-12-03 07:12] LABS: BASO% 0.6 % (0.0-0.8); EOS# 0.09 X1000 (0.0-0.7); HEMATOCRIT 25.6 % (37.0-47.0); HEMOGLOBIN 7.8 g/dL (12.0-16.0); IMM GRAN# 0.14 X1000 (0.0-0.04); IMM GRAN% 1.5 % (0.0-0.5); LYMPH# 1.26 X1000 (1.2-3.4); LYMPH% 13.9 % (20.5-51.1); MCH 30.2 PG (27-31); MCHC 30.5 g/dL (33-37); MCV 99.2 FL (81-99); MONO# 1.16 X1000 (0.11-0.59); MONO% 12.8 % (1.7-9.3); MPV 9.7 FL (7.4-10.4); NEUT% 70.2 % (42.2-75.2); PLT 219 X1000 (130-400); RBC 2.58 XMIL (4.2-5.4)
[2016-12-03] MEDS: DUONEB (A & A) INH SCH ×3 (07:37→21:45)
[2016-12-03] MEDS: PERIDEX MT SCH ×2 (09:02→21:56)
[2016-12-03] MEDS: LIDODERM TOP SCH (09:02)
[2016-12-03] MEDS: PAXIL PO SCH ×2 (09:02→21:52)
[2016-12-03] MEDS: ASPIRIN PO SCH (09:02)
[2016-12-03] MEDS: COLACE PO SCH ×2 (09:03→21:55)
[2016-12-03] MEDS: ZYRTEC PO SCH (09:03)
[2016-12-03] MEDS: FOLIC ACID PO SCH (09:03)
[2016-12-03] MEDS: MYCOSTATIN POWDER TOP SCH ×2 (09:03→21:55)
[2016-12-03] MEDS: ANTIVERT PO SCH (09:03)
[2016-12-03] MEDS: PATIENT'S OWN MED PO SCH ×2 (09:04→21:54)
[2016-12-03] MEDS: TEARISOL OPH SOLUTION BOTH EYES SCH ×2 (09:04→21:56)
[2016-12-03] MEDS ORDERED: SODIUM CHLORIDE 0.9% INJ ONE (10:18)
[2016-12-03] MEDS ORDERED: PHENERGAN IV ONE (10:18)
[2016-12-03] MEDS: PROTONIX IV SCH (12:11)
[2016-12-03] MEDS: SODIUM CHLORIDE 0.9% INJ SCH (12:11)
[2016-12-03] MEDS: MIRALAX PO SCH ×2 (12:11→21:54)
[2016-12-03] MEDS: DULCOLAX PR SCH (12:11)
--- NOTE | 2016-12-03 15:17 | Diag Imaging Result Document ---
PROCEDURE NAME: ABDOMEN FLAT/UPRIGHT - 12/03/2016 FLAT AND UPRIGHT RADIOGRAPH OF THE ABDOMEN: COMPARISON: 04/09/2014. FINDINGS: A right ureteral stent is in place. There are nonspecific bowel gas patterns throughout the abdomen. There are a few mildly distended loops of small bowel in the right upper quadrant that are nonspecific. There is no evidence of large-volume free abdominal gas. There are a few metallic clips that project over the left lower abdomen. IMPRESSION: Nonspecific abdomen as described.
--- NOTE | 2016-12-03 15:34 | CONSULTATION ---
DATE OF CONSULTATION: 12/03/2016 GASTROENTEROLOGY CONSULTATION: ATTENDING PHYSICIAN: Dr. Herbert. PRIMARY CARE DOCTOR: None. REASON FOR CONSULTATION: Abdominal discomfort, bloating and nausea. HISTORY OF PRESENT ILLNESS: Ms. Ambrocio is an 86-year-old female who was admitted on 11/30/2016 with hematuria. She was seen by Dr. Pope who performed cystoscopy with urethrogram and placed a ureteral stent. She is still having ongoing hematuria off and on. She was noted to be anemic. She has history of chronic constipation. A CT scan was done on admission which showed evidence of diverticulosis in the colon. She denies having any EGD or colonoscopy in the past. PAST MEDICAL HISTORY: Hypertension, rheumatoid arthritis, hyperlipidemia, peripheral neuropathy, morbid obesity, chronic constipation, diverticulosis in colon. PAST SURGICAL HISTORY: Hysterectomy, appendectomy, hernia repair, left knee surgery, left nephrectomy a few years ago, there was a complication of surgery and there was a perforated kidney which had to be removed by the urologist. SOCIAL HISTORY: Stopped smoking more than 25 years ago. Denies history of alcohol, illicit drugs. She lives in the [place]. FAMILY HISTORY: Coronary artery disease, hypertension. Denies history of colon cancer in family. ALLERGIES: No known drug allergies. MEDICATIONS IN THE HOSPITAL: Include: Hydrocortisone suppository, diphenhydramine, magnesium oxide as needed, Tylenol, Zofran, hydrocodone/acetaminophen, meclizine, aspirin, Colace, polyvinyl alcohol eye drops both eyes twice daily, the patient's home medicine twice daily, albuterol/ipratropium, lidocaine 5% patch topical daily, pregabalin, melatonin, nystatin powder b.i.d. topical, Paxil, Pravachol, cetirizine, ceftriaxone, folic acid, chlorhexidine, bisacodyl which was started today on 20 mg once daily, and Protonix IV once daily which was started today. DIET: She is currently on regular diet. REVIEW OF SYSTEMS: Denies any fevers, rigors, or chills, chest pain. She does complain of feeling weak and tired. She has arthritis. She is morbidly obese. She denies any vomiting blood or passing blood in the stools. She complains of chronic ongoing cough. She denies any new neurologic complaints. She complains of hematuria which is being followed by Dr. Pope.Vitals: Temperature 98.2 degrees, pulse rate of 68, respiratory rate of 16, blood pressure 144/70, saturating 100% on 2 L nasal cannula. Body weight of 267 pounds 6.4 ounces, BMI of 40.7 kg/m2. General Appearance: Morbidly obese, lying in bed, in no acute distress. HEENT: Pale conjunctivae. No icterus. Pupils equal, react to light. Neck: Supple. Chest: Decreased. Cardiac: Regular rhythm. No murmur or dullness. Abdomen: Morbidly obese. Soft, nontender, nondistended. Bowel sounds are hypoactive. No rebound. No guarding. Extremities: No cyanosis, clubbing. Neurologic: She is alert and awake and answers simple questions. LABS: Hemoglobin and hematocrit is 7.8 and 25.6, white count of 9.09, platelet count of 219,000, MCV 99.2, INR 1.04. Sodium 139, potassium 4.1, chloride 99, bicarbonate 30, anion gap 10, BUN of 22, creatinine 1.1, glucose of 101, calcium is 9.3, AST 21, ALT 16, alkaline phosphatase 72, total protein is 6.6, albumin of 3.2, amylase of 49, lipase 33. Iron level percent shows 8%, iron level of 17 which is low, ferritin of 432 which is high. IMAGING: CT scan of the abdomen and pelvis done on 11/29/2016 showed: 1. Status post left nephrectomy. 2. Mild hydronephrosis with hydroureter on the right. No renal stone identified. Small amount of hyperdense material in urinary bladder lumen which may relate to small amount of blood in the semen or possibly urinary bladder mass lesion. 3. No bowel obstruction. Uncomplicated colonic diverticulosis noted. 4. No evidence of cholecystitis. Gallbladder is not distended. 5. Left adrenal nodule of 2-3 cm was noted, it was stable. IMPRESSION AND PLAN: 1. Gross hematuria, being followed by Urology, status post cystoscopy and ureteral stent placement. Will continue to follow with Dr. Pope. 2. Abdominal discomfort and nausea which could be secondary to chronic constipation which has gotten worse during this hospital admission. We will start her on Dulcolax 20 mg once daily suppository and start her on MiraLAX twice daily. We will hold the laxative if more than 3 bowel movements in 24 hours. 3. Diverticulosis coli. In this regard, the patient will be on increased fiber diet 25-30 grams. The patient will need to avoid excessive corn, nuts, seeds in diet. 4. Morbid obesity. The patient will need to lose weight, so counseling was provided. 5. Gastrointestinal prophylaxis with Protonix once daily was started. 6. If the patient's symptoms persist then we may have to pursue endoscopic intervention like EGD and possible colonoscopy at some point. At this point, she is recovering from cystoscopy and is weak and is getting physical therapy for possible rehab placement. I encourage the patient to follow up with us in the office within 4 weeks of discharge to discuss possible treatment options if her symptoms persist. Above plan was discussed with the patient and Dr. Herbert.
--- NOTE | 2016-12-03 18:39 | PROGRESS NOTE ---
DATE: 12/03/2016 SUBJECTIVE: The patient complains of abdominal pain and nausea. She states that she has not had a bowel movement in several days. OBJECTIVE: Vital Signs: Temperature 98.4 degrees, blood pressure 102/88, heart rate 90, respirations 16, O2 saturations 100% on 2 L nasal cannula. General: This is an elderly, morbidly obese female, lying in bed, in no acute distress. Head: Normocephalic, atraumatic. Heart: S1, S2 normal. Regular rate and rhythm. Lungs: Clear to auscultation bilaterally. No wheezes, no rales, no rhonchi. Abdomen: Positive bowel sounds. Soft, obese, nontender, nondistended. Extremities: +1 edema. No cyanosis. No calf tenderness. Neurologic: The patient is alert and oriented x3. She is hard of hearing. LABS: White blood cell count 9, hemoglobin 7.8, hematocrit 25, platelets 219,000. Sodium 139, potassium 4.1, chloride 99, CO2 30, BUN 22, creatinine 1.1, glucose 101. ASSESSMENT AND PLAN: 1. Status post cystoscopy with bilateral ureteroscopy with right ureteral stent placement secondary to gross hematuria. The patient is having hematuria today. We will await further recommendations from the urologist. 2. Morbid obesity. Aware. 3. Constipation with nausea. The patient was seen by Dr. Flores who started the patient on scheduled laxative therapy. 4. Acute kidney injury on chronic kidney disease. Improved. 5. Hypertension. Controlled. 6. Neuropathy. Continue on Lyrica. 7. Situational depression. Continue on Paxil. 8. Deep vein thrombosis prophylaxis. Continue on SCDs.
[2016-12-03] MEDS: ROCEPHIN 1 GM/NS 50 ML IV SCH ×2 (21:49→23:03)
[2016-12-03] MEDS: PRAVACHOL PO SCH (21:52)
[2016-12-03] MEDS: MELATONIN PO SCH (21:52)
[2016-12-03] MEDS: LYRICA PO SCH (21:52)
[2016-12-04 05:59] LABS: HEMATOCRIT 26.1 % (37.0-47.0); HEMOGLOBIN 7.7 g/dL (12.0-16.0); MCH 29.6 PG (27-31); MCHC 29.5 g/dL (33-37); MCV 100.4 FL (81-99); MPV 9.3 FL (7.4-10.4); RBC 2.6 XMIL (4.2-5.4)
[2016-12-04 06:22] LABS: CALCIUM 9.2 mg/dL (8.8-10.2); POTASSIUM 4.1 mmol/L (3.5-5.1)
[2016-12-04] MEDS: DUONEB (A & A) INH SCH ×3 (07:52→20:52)
[2016-12-04] MEDS: ANTIVERT PO SCH (09:15)
[2016-12-04] MEDS: ZYRTEC PO SCH (09:16)
[2016-12-04] MEDS: FOLIC ACID PO SCH (09:16)
[2016-12-04] MEDS: COLACE PO SCH ×2 (09:16→22:34)
[2016-12-04] MEDS: PAXIL PO SCH ×2 (09:16→22:33)
[2016-12-04] MEDS: DULCOLAX PR SCH (09:16)
[2016-12-04] MEDS: ASPIRIN PO SCH (09:16)
[2016-12-04] MEDS: PERIDEX MT SCH ×2 (09:17→22:33)
[2016-12-04] MEDS: MIRALAX PO SCH ×2 (09:17→22:47)
[2016-12-04] MEDS: PATIENT'S OWN MED PO SCH (09:17)
[2016-12-04] MEDS: LIDODERM TOP SCH (09:17)
[2016-12-04] MEDS: MYCOSTATIN POWDER TOP SCH ×2 (09:25→22:36)
[2016-12-04] MEDS: TEARISOL OPH SOLUTION BOTH EYES SCH ×2 (09:26→22:36)
[2016-12-04] MEDS: SODIUM CHLORIDE 0.9% INJ SCH (11:39)
[2016-12-04] MEDS: PROTONIX IV SCH (11:39)
--- NOTE | 2016-12-04 15:32 | PROGRESS NOTE ---
DATE: 12/04/2016 SUBJECTIVE: Ms. Ambrocio denies any discomfort. She underwent bilateral diagnostic ureteroscopies and bilateral retrograde pyelograms without any evidence of obvious source of bleeding such as cancer, tumors, or scar tissue. She did have generalized oozing which may be consistent with hemorrhagic cystitis. On postop day 1, she had nearly clear urine. Yesterday, which was postop day 2, she redeveloped hematuria with several small clots. Nursing staff had irrigated and reports getting out small clots with clearing up of the urine. OBJECTIVE: Vital Signs: T 98.1 degrees, P 86, BP 137/61. General: No acute distress. Abdomen: Protuberant. Nontender to palpation. Genitourinary: Bladder is nontender to palpation. Corado catheter in place, draining straw-colored urine. PERTINENT LABORATORY DATA: White cell count of 8000, hematocrit of 26. It was 25.6 yesterday. Creatinine of 1.0. ASSESSMENT: An 86-year-old female with a solitary kidney who developed hematuria. Her workup did not reveal any evidence of malignancy or active bleeding during examination. She may have what we call hemorrhagic cystitis. I discussed with the patient conservative observation for now, increased hydration, and urine to gravity drainage. PLAN: 1. Irrigate p.r.n. with sterile water. 2. Will continue to follow.
--- NOTE | 2016-12-04 16:00 | PROGRESS NOTE ---
DATE: 12/04/2016 SUBJECTIVE: The patient is having hematuria with clots. She denies having any pain. She states that her nausea has improved since she had a good bowel movement. OBJECTIVE: Vital Signs: Temperature 98 degrees, blood pressure 137/61, heart rate 86, respirations 20, O2 saturations 99% on 2 L nasal cannula. General: This is an elderly female, lying in bed, in no acute distress. Head: Normocephalic atraumatic. Heart: S1, S2. Normal. Regular rate and rhythm. Lungs: Clear to auscultation bilaterally. No wheezes, no rales. No rhonchi. Abdomen: Obese, soft, nontender, nondistended. Extremities: +1 edema. No cyanosis. No calf tenderness. LABS: White blood cell count 8.4, hemoglobin 7.7, hematocrit 26, platelets 223,000. Sodium 141, potassium 4.1, chloride 101, CO2 30, BUN 18, creatinine 1, glucose 87. ASSESSMENT AND PLAN: 1. Status post cystoscopy with bilateral ureteroscopy with right ureteral stent placement. The patient was having gross hematuria and clots so the patient has undergone bladder irrigation and is being followed by the urologist. 2. Morbid obesity. Aware. 3. Constipation. Improved. Continue on scheduled laxatives. 4. Hypertension. Controlled. 5. Neuropathy. Continue on Lyrica. 6. Situational depression. Continue on Paxil. 7. Deep vein thrombosis prophylaxis. Continue with SCDs. 8. Continue with physical therapy.
[2016-12-04] MEDS: PRAVACHOL PO SCH (22:33)
[2016-12-04] MEDS: LYRICA PO SCH (22:33)
[2016-12-04] MEDS: MELATONIN PO SCH (22:33)
[2016-12-04] MEDS: TYLENOL PO PRN (22:33)
[2016-12-04] MEDS: ROCEPHIN 1 GM/NS 50 ML IV SCH (22:33)
[2016-12-05] MEDS: PATIENT'S OWN MED PO SCH ×3 (05:34→22:02)
[2016-12-05 06:40] LABS: HEMATOCRIT 25.4 % (37.0-47.0); HEMOGLOBIN 7.5 g/dL (12.0-16.0); MCH 30.5 PG (27-31); MCHC 29.5 g/dL (33-37); MCV 103.3 FL (81-99); MPV 9.4 FL (7.4-10.4); RBC 2.46 XMIL (4.2-5.4)
[2016-12-05 06:47] LABS: CALCIUM 9.3 mg/dL (8.8-10.2); POTASSIUM 4.1 mmol/L (3.5-5.1)
[2016-12-05] MEDS: DUONEB (A & A) INH SCH ×5 (07:25→21:46)
[2016-12-05] MEDS: COLACE PO SCH ×3 (08:32→22:00)
[2016-12-05] MEDS: MIRALAX PO SCH ×2 (08:32→22:02)
[2016-12-05] MEDS: PERIDEX MT SCH ×3 (08:32→22:01)
[2016-12-05] MEDS: ANTIVERT PO SCH (08:32)
[2016-12-05] MEDS: DULCOLAX PR SCH (08:33)
[2016-12-05] MEDS: ASPIRIN PO SCH (08:33)
[2016-12-05] MEDS: LIDODERM TOP SCH (08:33)
[2016-12-05] MEDS: PAXIL PO SCH ×3 (08:33→22:01)
[2016-12-05] MEDS: ZYRTEC PO SCH (08:33)
[2016-12-05] MEDS: FOLIC ACID PO SCH (08:33)
[2016-12-05] MEDS: TEARISOL OPH SOLUTION BOTH EYES SCH ×2 (08:34→22:03)
[2016-12-05] MEDS: MYCOSTATIN POWDER TOP SCH ×3 (08:34→22:02)
[2016-12-05] MEDS: SODIUM CHLORIDE 0.9% INJ SCH (14:18)
[2016-12-05] MEDS: PROTONIX IV SCH (14:18)
--- NOTE | 2016-12-05 17:06 | PROGRESS NOTE ---
DATE: 12/05/2016 SUBJECTIVE: Patient resting in bed. Her family is present at bedside including her daughter. Her constipation is resolving with laxatives. She was able to eat better. OBJECTIVE: Vital signs: Temperature 98.3 degrees, pulse rate of 62, respiratory of 14, blood pressure 142/54, saturating 97% on 2 L nasal cannula, body weight of 267 pounds 6.4 ounces, BMI of 40.7 kg/m2. General: Patient obese lying in bed in no acute distress. HEENT: Pale conjunctiva. No icterus. Neck: Supple. Abdomen: Obese, soft, nontender, nondistended. Bowel sounds. Extremities: No cyanosis, clubbing. Neuro: Alert, awake, oriented. LABS: Hemoglobin and hematocrit is 7.5, 25.4, white count 9.1, platelet count of 221,000, MCV of 103.3. Sodium 142, potassium of 4.1, chloride 103, BUN of 17, creatinine 1, glucose of 88, calcium 9.3. IMPRESSION AND PLAN: 1. Hematuria currently followed by primary care team and Dr. Pope. 2. Anemia likely secondary to hematuria. 3. Morbid obesity, counseling was provided. 4. Constipation. Will continue on MiraLAX for now. 5. Continue the GI prophylaxis with Protonix once daily. If patient's anemia persists then we may elect to do an EGD and flexible sigmoidoscopy at a later date. This can be done as an outpatient if needed. I discussed the above plan of care with the patient and daughter and family at bedside and al questions were answered. MTDD
--- NOTE | 2016-12-05 17:26 | PROGRESS NOTE ---
DATE: 12/05/2016 SUBJECTIVE: The patient is resting comfortably in bed. She is no longer having hematuria. She ate well and is having regular bowel movements. OBJECTIVE: Vital Signs: Temperature 98 degrees, blood pressure 142/54, heart rate 82, respirations 16, O2 saturations 97% on room air. General: This is a morbidly obese elderly female lying in bed in no acute distress. Head: Normocephalic. Atraumatic. Heart: S1, S2. Normal. Regular rate and rhythm. Lungs: Clear to auscultation bilaterally. No wheezes, no rales. No rhonchi. Abdomen: Positive bowel sounds. Soft, nontender, nondistended. Extremities: +1 edema. No cyanosis. No calf tenderness. Neuro: The patient is alert and oriented x3. No focal neurologic deficits noted. LABS: White blood cell count 9, hemoglobin 7.5, hematocrit 25, platelets 221,000. Sodium 143, potassium 4.1, chloride 103, CO2 31, BUN 17, creatinine 1, glucose 88. ASSESSMENT AND PLAN: 1. Status post cystoscopy with bilateral ureteroscopy with right ureteral stent placement secondary to gross hematuria. The hematuria has resolved. Urology is following. 2. Constipation. Resolved. Continue on MiraLAX as ordered. 3. Morbid obesity. Aware. 4. Anemia. Will transfuse the patient with 1 unit of packed red blood cells today. 5. Hypertension. Controlled. 6. Neuropathy. Continue on Lyrica. 7. Situational depression. Continue on Paxil. 8. Deep vein thrombosis prophylaxis. Continue with SCDs. 9. Continue with physical therapy.
[2016-12-05] MEDS: MELATONIN PO SCH ×2 (19:46→22:02)
[2016-12-05] MEDS: LYRICA PO SCH ×2 (19:46→22:03)
[2016-12-05] MEDS: PRAVACHOL PO SCH ×2 (19:46→22:01)
[2016-12-05] MEDS: ROCEPHIN 1 GM/NS 50 ML IV SCH (22:45)
[2016-12-06 06:53] LABS: CALCIUM 9.1 mg/dL (8.8-10.2); POTASSIUM 4.2 mmol/L (3.5-5.1)
[2016-12-06 07:08] LABS: HEMATOCRIT 30.3 % (37.0-47.0); HEMOGLOBIN 9.2 g/dL (12.0-16.0); MCH 30.4 PG (27-31); MCHC 30.4 g/dL (33-37); MPV 9.2 FL (7.4-10.4); RBC 3.03 XMIL (4.2-5.4)
[2016-12-06] MEDS: DUONEB (A & A) INH SCH ×5 (07:52→23:33)
[2016-12-06] MEDS: LIDODERM TOP SCH (09:49)
[2016-12-06] MEDS: MIRALAX PO SCH ×2 (09:53→20:41)
[2016-12-06] MEDS: MYCOSTATIN POWDER TOP SCH ×2 (09:54→20:43)
[2016-12-06] MEDS: PATIENT'S OWN MED PO SCH ×2 (09:54→20:44)
[2016-12-06] MEDS: TEARISOL OPH SOLUTION BOTH EYES SCH ×2 (09:55→20:44)
[2016-12-06] MEDS: DULCOLAX PR SCH ×2 (09:55→09:58)
[2016-12-06] MEDS: ZYRTEC PO SCH (09:56)
[2016-12-06] MEDS: COLACE PO SCH ×2 (09:56→20:42)
[2016-12-06] MEDS: PAXIL PO SCH ×2 (09:56→20:42)
[2016-12-06] MEDS: ASPIRIN PO SCH (09:56)
[2016-12-06] MEDS: FOLIC ACID PO SCH (09:56)
[2016-12-06] MEDS: ANTIVERT PO SCH (09:56)
[2016-12-06] MEDS: PERIDEX MT SCH ×2 (09:56→20:41)
[2016-12-06] MEDS: SODIUM CHLORIDE 0.9% INJ SCH (12:09)
[2016-12-06] MEDS: PROTONIX IV SCH (12:09)
--- NOTE | 2016-12-06 14:35 | PROGRESS NOTE ---
DATE: 12/06/2016 SUBJECTIVE: The patient is resting comfortably in bed. She has no complaints today. Her urine remains clear. OBJECTIVE: Vital Signs: Temperature 97.5 degrees, blood pressure 135/76, heart rate 82, respirations 16, O2 saturation is 100% on 2 L nasal cannula. General: This is a morbidly obese female, lying comfortably in bed, in no acute distress. Head: Normocephalic, atraumatic. Heart: S1, S2. Normal. Regular rate and rhythm. Lungs: Clear to auscultation bilaterally. No wheezes. No rales. No rhonchi. Abdomen: Positive bowel sounds. Soft, nontender, nondistended. Extremities: There is +1 edema. No cyanosis. No calf tenderness. Neurologic: The patient is alert and oriented x3. LABS: White blood cell count 10, hemoglobin 9.2, hematocrit 30, platelets 218,000. Sodium 141, potassium 4.2, chloride 103, CO2 30, BUN 18, creatinine 0.9, glucose 87. ASSESSMENT AND PLAN: 1. Status post cystoscopy with bilateral ureteroscopy with right ureteral stent placement secondary to gross hematuria. The patient is no longer having hematuria. Urology is following. 2. Constipation. Resolved. Continue on scheduled laxative therapy. 3. Anemia of acute blood loss. The patient's hemoglobin and hematocrit have improved after receiving 1 unit of packed red blood cells on Wednesday. We will continue to monitor this closely. 4. Morbid obesity. Aware. 5. Hypertension. Controlled. 6. Neuropathy. Continue on Lyrica. 7. Situational depression. Continue on Paxil. 8. Deep vein thrombosis prophylaxis. Continue with SCDs. 9. Continue with physical therapy. 10. Disposition. The patient should be stable for discharge back to the [facility] once cleared by the urologist.
--- NOTE | 2016-12-06 18:37 | PROGRESS NOTE ---
DATE: 12/03/2016 SUBJECTIVE: Patient currently resting in bed. She denies any complaints today. She is having good bowel movements. OBJECTIVE: Vital signs: Temperature of 98.6 degrees, pulse 91, respiratory 14 , blood pressure 121/65, saturating on nasal cannula. General: Obese lying in bed in no acute. HEENT: Pale conjunctivae. No icterus. Neck: Supple. Abdomen: Obese, soft, nontender, nondistended. Bowel sounds and no guarding, rebound. Extremities: No cyanosis, clubbing. Neuro: Alert, awake, oriented x3. She has hearing loss. LABS: Hemoglobin and hematocrit is 9.2 with 30.3, white count 10.3, platelet count of 218,000. Sodium 140, potassium 4.2, chloride 103, bicarb 30, anion gap 8, BUN of 18, creatinine 0.9, glucose of 87, calcium 9.1. IMPRESSION/PLAN: 1. Hematuria being followed by Dr. Pope. Her hematuria is now resolving. 2. Constipation is resolved. Will continue on MiraLAX twice daily. 3. Anemia. We will continue on Iron-C and multivitamin. 4. Morbid obesity. Counseling provided. 5. Gastrointestinal prophylaxis with Protonix once daily. 6. Further recommendations follow pending above. MTDD
[2016-12-06] MEDS: TYLENOL PO PRN (20:42)
[2016-12-06] MEDS: CENTRUM SILVER PO SCH (20:42)
[2016-12-06] MEDS: LYRICA PO SCH (20:42)
[2016-12-06] MEDS: ICAR-C PO SCH (20:42)
[2016-12-06] MEDS: MELATONIN PO SCH (20:42)
[2016-12-06] MEDS: PRAVACHOL PO SCH (20:42)
[2016-12-06] MEDS: ROCEPHIN 1 GM/NS 50 ML IV SCH (23:04)
[2016-12-07 06:46] LABS: CALCIUM 9.6 mg/dL (8.8-10.2); POTASSIUM 4.6 mmol/L (3.5-5.1)
[2016-12-07] MEDS: DUONEB (A & A) INH SCH ×4 (07:56→21:38)
[2016-12-07] MEDS: ASPIRIN PO SCH (10:02)
[2016-12-07] MEDS: DULCOLAX PR SCH (10:02)
[2016-12-07] MEDS: LIDODERM TOP SCH (10:02)
[2016-12-07] MEDS: PERIDEX MT SCH ×2 (10:02→20:13)
[2016-12-07] MEDS: COLACE PO SCH ×2 (10:02→20:13)
[2016-12-07] MEDS: ANTIVERT PO SCH (10:02)
[2016-12-07] MEDS: ZYRTEC PO SCH (10:02)
[2016-12-07] MEDS: MIRALAX PO SCH ×2 (10:02→20:27)
[2016-12-07] MEDS: ICAR-C PO SCH ×2 (10:03→20:13)
[2016-12-07] MEDS: FOLIC ACID PO SCH (10:03)
[2016-12-07] MEDS: TYLENOL PO PRN ×2 (10:03→20:23)
[2016-12-07] MEDS: PAXIL PO SCH ×2 (10:03→20:14)
[2016-12-07] MEDS: CENTRUM SILVER PO SCH ×2 (10:03→20:14)
[2016-12-07] MEDS: TEARISOL OPH SOLUTION BOTH EYES SCH ×2 (10:09→20:15)
[2016-12-07] MEDS: PATIENT'S OWN MED PO SCH ×2 (10:10→20:14)
[2016-12-07] MEDS: MYCOSTATIN POWDER TOP SCH ×2 (10:10→20:14)
--- NOTE | 2016-12-07 11:22 | PROGRESS NOTE ---
DATE: 12/07/2016 SUBJECTIVE: Patient is currently complaining of nausea. She has lowered appetite this morning and she is refusing to eat her breakfast this morning. This has been ongoing for the last 7 days. Apparently, she does have an constipation with overflow diarrhea. She is on laxatives. Her appetite also fluctuates. Today, she felt nauseous this morning. OBJECTIVE: Vitals: Temperature of 98.3 degrees, pulse rate of 75, respiratory rate 18, blood pressure of 147/77, saturating 97% on 2 L nasal cannula. General Appearance: Obese, lying in bed, in no acute distress. HEENT. Pale conjunctivae. No icterus. Neck: Supple. Abdomen: Morbidly obese. Soft, nontender, nondistended. No guarding. No rebound. Extremities: No cyanosis, clubbing. Neurologic: Alert, awake, oriented x3. Labs: Sodium 140, potassium 4.6, chloride 100, bicarb 30, anion gap of 9, BUN of 17, creatinine of 0.9, glucose of 89, calcium is 9.6. ASSESSMENT AND PLAN: 1. Nausea, intermittent. I offered to perform esophagogastroduodenoscopy in the morning. The patient acknowledged and agreed to proceed with the above. 2. Anemia. Continue on Iron-C and multivitamin. 3. Constipation. We will continue MiraLAX twice daily. 4. Hematuria has now resolved. 5. Reduce the dose of narcotics to as low as possible. The above plan was discussed with the patient and the nurse. All questions were answered.
[2016-12-07] MEDS: SODIUM CHLORIDE 0.9% INJ SCH (13:20)
[2016-12-07] MEDS: PROTONIX IV SCH (13:20)
--- NOTE | 2016-12-07 15:59 | PROGRESS NOTE ---
DATE: 12/07/2016 SUBJECTIVE: Ms. Ambrocio is feeling better. Her understanding was that they were going to try and do an EGD, but she does feel better. No abdominal pain at the present time. She was admitted on 11/30/2016 and she came in with abnormal laboratory. A 86-year-old female presented to the emergency room from [facility]. She had labs that indicate as abnormal. She had a lot of bleeding the afternoon of admission, blood in the urine. She states that she only has one kidney although reason for nephrectomy was unclear. States frequent urinary tract infections and is on chronic nitrofurantoin. Denied any overt symptoms other than difficulty walking. Patient is somewhat obese, does not seem to ambulate frequently. Urine showed large amount of blood. PAST MEDICAL HISTORY: 1. Hypertension. 2. Rheumatoid arthritis. 3. Hyperlipidemia. 4. Peripheral neuropathy. 5. Morbid obesity. PAST SURGICAL HISTORY: 1. Hysterectomy. 2. Appendectomy. 3. Hernia repair. 4. Left knee surgery. 5. Left nephrectomy for unclear reasons. Family states it was emergency removal. Patient was admitted with cystitis and anemia secondary to: Acute kidney injury. Questionable urinary tract infection. She has been here since the 11/30. Dr. Pope was consulted and he felt that solitary right kidney, gross hematuria, evidence of hydroureter nephrosis suspicious for mass. Discusses this patient workup, cystoscopy, right retrograde pyelogram, ureteroscopy and this was performed. Right ureter stent placement. No longer having gross hematuria. The stent was placed on 12/02. Workup did not reveal any evidence of malignancy or active bleeding during examination, and had what they call hemorrhagic cystitis. So we are going to treat conservatively. Increased hydration and urine to gravity drainage. Seems to be improving. OBJECTIVE: Vital signs: Today temperature 98.1 degrees, pulse 94, respirations 18, blood pressure 120/59. Pupils: Equal, round. Lungs: Clear in all lung clark. Cardiovascular: Regular rhythm and rate without murmur or S3. Abdomen: Soft. Skin: Warm and dry. Vital signs: Blood pressure 120/59. : Urine output 2000 mL. LABORATORY FROM 12/06: Hematocrit 30, hemoglobin 9.2. Electrolytes this morning, sodium 140, potassium 4.6, chloride 100, bicarb 31, BUN 17, creatinine 0.9. ASSESSMENT AND PLAN: 1. Anemia. Suspect gross hematuria. Stent has been placed. Following hematocrit and hemoglobin. 2. Nausea, which is intermittent. Plan is to perform an esophagogastroduodenoscopy today. 3. Constipation. Continue MiraLAX twice a day. 4. Reduce the dose of narcotics as low as possible. 5. General weakness and inability to walk. Continue to work with Physical Therapy. PLAN: Looking over orders, I do not see any changes at this time. She is on iron carbonyl 1 b.i.d., multivitamin 1 b.i.d. polyethylene glycol 17 g b.i.d., Protonix 40 mg q.24 hours, ceftriaxone 1 g to 24 hours, Zyrtec 10 mg daily, Pravachol 40 mg at bedtime, Paxil 20 mg b.i.d., melatonin 3 mg at bedtime, Lyrica 75 mg at bedtime, lidocaine patch for her back, docusate sodium or Colace 100 mg b.i.d. She has polyvinyl alcohol eyedrops b.i.d.
[2016-12-07] MEDS: PRAVACHOL PO SCH (20:13)
[2016-12-07] MEDS: MELATONIN PO SCH (20:14)
[2016-12-07] MEDS: LYRICA PO SCH (20:14)
[2016-12-07] MEDS: ROCEPHIN 1 GM/NS 50 ML IV SCH (22:10)
[2016-12-08] MEDS: TYLENOL PO PRN ×2 (02:32→20:55)
[2016-12-08 06:19] LABS: HEMATOCRIT 31.6 % (37.0-47.0); HEMOGLOBIN 9.6 g/dL (12.0-16.0); MCH 30.4 PG (27-31); MCHC 30.4 g/dL (33-37); RBC 3.16 XMIL (4.2-5.4)
[2016-12-08] MEDS: DUONEB (A & A) INH SCH ×4 (08:05→19:54)
[2016-12-08] MEDS: LIDODERM TOP SCH (08:27)
[2016-12-08] MEDS: ANTIVERT PO SCH (09:56)
[2016-12-08] MEDS: ZYRTEC PO SCH (09:56)
[2016-12-08] MEDS: COLACE PO SCH ×2 (09:58→20:50)
[2016-12-08] MEDS: PATIENT'S OWN MED PO SCH ×2 (09:58→20:58)
[2016-12-08] MEDS: ASPIRIN PO SCH (09:59)
[2016-12-08] MEDS: MIRALAX PO SCH ×2 (09:59→20:49)
[2016-12-08] MEDS: CENTRUM SILVER PO SCH ×2 (10:00→20:50)
[2016-12-08] MEDS: PAXIL PO SCH ×2 (10:00→20:50)
[2016-12-08] MEDS: FOLIC ACID PO SCH (10:00)
[2016-12-08] MEDS: DULCOLAX PR SCH (10:01)
[2016-12-08] MEDS: ICAR-C PO SCH ×2 (10:01→20:50)
[2016-12-08] MEDS: MYCOSTATIN POWDER TOP SCH ×2 (10:02→20:51)
[2016-12-08] MEDS: TEARISOL OPH SOLUTION BOTH EYES SCH ×2 (10:03→20:51)
[2016-12-08] MEDS: PERIDEX MT SCH ×2 (10:03→20:49)
[2016-12-08] MEDS: PROTONIX IV SCH (12:10)
[2016-12-08] MEDS ORDERED: MYLICON DROPS (DOSE) MISC ONE (13:18)
[2016-12-08] MEDS ORDERED: DIPRIVAN 1% ONE (13:54)
[2016-12-08] MEDS ORDERED: EXTENSION SET 32 IN 4522 ONE (14:06)
[2016-12-08] MEDS ORDERED: NS 0 ML ONE (14:06)
[2016-12-08] MEDS ORDERED: XYLOCAINE-MPF 2% ONE (14:06)
[2016-12-08] MEDS ORDERED: ANESTHESIA PB SET 88 IN 5742 ONE (14:06)
[2016-12-08] MEDS ORDERED: NS 500 ML ONE (14:07)
--- NOTE | 2016-12-08 14:25 | OPERATIVE NOTE ---
PROCEDURE DATE: 12/08/2016 PROCEDURE: Esophagogastroduodenoscopy with biopsy. PREOPERATIVE DIAGNOSES: Anemia, nausea. POSTOPERATIVE DIAGNOSES: Antral erosions and a small hiatal hernia. No bleeding lesions seen. DESCRIPTION OF PROCEDURE: After informed consent and adequate intravenous sedation by Anesthesia, the scope was introduced to the esophagus. Patient has a small hiatal hernia present. Cardia, fundus, body normal. Antrum shows 1 small antral erosion and antral gastritis. Biopsies were made. Duodenum normal. No sign of any bleeding site identified. The scope was withdrawn. The patient tolerated the procedure well without any immediate complications.
--- NOTE | 2016-12-08 14:31 | PROGRESS NOTE ---
DATE: 12/08/2016 SUBJECTIVE: Ms. Ambrocio reports that she feels pretty good. They had just finished giving her bath when I saw her. The plan is to do an esophagogastroduodenoscopy. They have taken a Corado catheter out. It appears that she has cystitis that accounts for her hematuria, but concerned that the level blood loss maybe more than just from her . OBJECTIVE: Vital Signs: Temperature afebrile. She is 98.2, pulse 75, respirations 18, blood pressure 137/59. HEENT: Pupils are equal round. CVP less than 6 cm. Lungs: Clear in all lung clark. Cardiovascular: Regular rhythm and rate without murmur or S3. Abdomen: Soft. Urine output is 1840 mL. LAB: White count 10,670, hematocrit 31, and platelet count 241,000. Sodium 140, potassium 4.6, chloride 100, BUN 17, creatinine 0.9. Dr. Prather, I believe, did an esophagogastroduodenoscopy today. I think he obtained an esophageal biopsy. He found gastritis, antral erosions, and small hiatal hernia. ASSESSMENT AND PLAN: 1. Gross hematuria from acute cystitis. Corado catheter was taken out. Dr. Leif Pope following. 2. Anemia. Suspect possible from gastrointestinal blood loss as well. Esophagogastroduodenoscopy showed a good amount of gastritis. We will keep her on a proton pump inhibitor. 3. Nausea seems to have improved. 4. Constipation seems to have improved. She is on MiraLAX twice a day. 5. Reduce the dose of narcotics for her. Review of her orders. She is on iron, Carbinol 1 b.i.d., multivitamin b.i.d., MiraLAX 17 g b.i.d., Protonix 40 mg IV q.24 hours, folic acid 1 mg a day, pravastatin 40 mg at bedtime, Paxil 10 mg b.i.d. Note that the renal function looks good. Hemoglobin and hematocrit remained stable at 9.6 and 31.
[2016-12-08] MEDS: SODIUM CHLORIDE 0.9% INJ SCH (14:49)
[2016-12-08] MEDS: LYRICA PO SCH (20:50)
[2016-12-08] MEDS: PRAVACHOL PO SCH (20:50)
[2016-12-08] MEDS: MELATONIN PO SCH (20:50)
[2016-12-08] MEDS: ROCEPHIN 1 GM/NS 50 ML IV SCH (20:55)
[2016-12-09] MEDS: ROCEPHIN 1 GM/NS 50 ML IV SCH (00:47)
[2016-12-09] MEDS: DUONEB (A & A) INH SCH (08:08)
[2016-12-09] MEDS: COLACE PO SCH (09:07)
[2016-12-09] MEDS: ANTIVERT PO SCH (09:07)
[2016-12-09] MEDS: CENTRUM SILVER PO SCH (09:08)
[2016-12-09] MEDS: ASPIRIN PO SCH (09:08)
[2016-12-09] MEDS: PAXIL PO SCH (09:08)
[2016-12-09] MEDS: ICAR-C PO SCH (09:08)
[2016-12-09] MEDS: ZYRTEC PO SCH (09:08)
[2016-12-09] MEDS: FOLIC ACID PO SCH (09:08)
[2016-12-09] MEDS: PERIDEX MT SCH (09:09)
[2016-12-09] MEDS: LIDODERM TOP SCH (09:09)
[2016-12-09] MEDS: MIRALAX PO SCH (09:09)
[2016-12-09] MEDS: TEARISOL OPH SOLUTION BOTH EYES SCH (09:14)
[2016-12-09] MEDS: PATIENT'S OWN MED PO SCH (09:15)
[2016-12-09] MEDS: MYCOSTATIN POWDER TOP SCH (09:15)
[2016-12-09] MEDS: DULCOLAX PR SCH (09:16)
[2016-12-09 11:18] VITALS: BP 151/84
--- NOTE | 2016-12-09 12:15 | PROGRESS NOTE ---
DATE: 12/09/2016 SUBJECTIVE: Ms Ambrocio feels good. She had a good night. The Corado catheter is out. She has no nausea, no abdominal pain. No complaints of bladder spasm. OBJECTIVE: Vital signs: Temperature 98.2 degrees, pulse 82, respirations 18, blood pressure 151/84. CVP less than 6 cm. Lungs: Clear in all lung clark. Cardiovascular exam: Regular rhythm and rate without murmur or S3. Abdomen: Soft. Skin: Warm and dry. : Urine output was good at 800 mL over last 24 hours. REVIEWED LABS: From the twenty-, hematocrit stable at 31. Chemistries pending at this time. ASSESSMENT AND PLAN: 1. Gross hematuria. Suspect from cystitis. Will check electrolytes and complete blood count again this morning. She looks like she is doing much better. 2. Dr. Moralez did esophagogastroduodenoscopy. Antrum shows a hiatal hernia. Cardia and fundus and body normal. Showed 1 small antral erosion. Antral gastritis biopsies were made. Duodenum was normal. No sign of bleeding. 3. Anemia. I do not see any active bleeding at this time. Check a complete blood count again today and electrolytes. 4. Nausea is improved. 5. Constipation is improved. Hopefully can get her back to the intermediate today. Review of orders: I do not see any changes at this point.
[2016-12-09] MEDS: PROTONIX IV SCH (13:46)
[2016-12-09] MEDS: SODIUM CHLORIDE 0.9% INJ SCH (13:46)
--- NOTE | 2016-12-09 16:16 | PROGRESS NOTE ---
DATE: 12/10/2015 SUBJECTIVE: The patient is resting in bed. She is getting ready to be discharged today. She is feeling better. OBJECTIVE: Temperature 98.2, pulse rate of 82, respiration 18, blood pressure 150/84, saturating 97%. General: Obese, lying in bed in no acute distress. HEENT: Pale conjunctivae. No icterus Neck is supple. Abdomen is obese, soft, nontender, nondistended. Extremities: No cyanosis, clubbing. Neurologic: She is alert, awake, oriented x3. LABORATORY DATA: Her labs were drawn yesterday. IMPRESSION AND PLAN: 1. Gross hematuria from cystitis, being followed Dr. Pope. 2. Erosive gastritis per the esophagogastroduodenoscopy done on 12/08/[address] Moralez. She also was noted to have a hiatal hernia. 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 3. Anemia. We will continue on Iron C and multivitamin. 4. Constipation. We will continue on MiraLAX even when she goes to the half-way. 5. The above plan discussed with the patient and all questions answered.
--- NOTE | 2016-12-09 21:32 | DISCHARGE SUMMARY ---
ADMISSION DATE: 11/30/2016 DISCHARGE DATE: 12/09/2016 HOSPITAL COURSE: This is an 86-year-old female who presented to the emergency room on 11/30 with abnormal labs. She stated she had a lot of bleeding the afternoon of admission with blood in her urine. She states that she only has one kidney. Apparently the kidney was removed because of a hematoma to save the kidney. Actually it was life-saving surgery. I am not sure why she bled/spontaneous bleed. She has had frequent urinary tract infections on chronic nitrofurantoin treatment for these. Denied any overt symptoms other than difficulty waking, however, she denied any chest pain or constipation. In the emergency room BUN was 39, creatinine 1.6, hemoglobin 7.3. PAST MEDICAL HISTORY: Review again. 1. Hypertension. 2. Rheumatoid arthritis. 3. Hyperlipidemia. 4. Peripheral neuropathy. 5. Morbid obesity. PAST SURGICAL HISTORY: 1. Hysterectomy. 2. Appendectomy. 3. Hernia repair. 4. Left knee surgery. 5. Left nephrectomy for bleeding which they could not stop. SOCIAL HISTORY: Stopped smoking over 25 years ago. Denies alcohol or illicit drugs. HOSPITAL COURSE: She was admitted to the hospital. Dr. Pope was consulted for her gross hematuria. CT of abdomen and pelvis was performed. She has a solitary right kidney with gross hematuria, evidence of hydroureter nephrosis, suspicion for a mass. Patient underwent cystoscopy retrograde, ureteroscopy and a JJ stent was placed. I suspect the bleeding was from cystitis. Corado catheter was taken out. Concerned about the drop of her hemoglobin so GI was asked to see her as well and Dr. Flores evaluated her. She has had some abdominal discomfort, nausea, chronic constipation and history of diverticulosis in the past. She underwent EGD per Dr. Moralez on 12/08. She has antral erosions and small hiatal hernia. No bleeding lesions seen. The patient improved clinically. It was felt she could go back to the senior living on 12/09/2016 and wanted her to continue physical therapy for her weakness and deconditioning. DISCHARGE MEDICATIONS: 1. We will give her Deputy. We will decrease the interval down to q.6 hours p.r.n. for pain. We have been able to cut down on the pain medicines which I think has been helpful for her. 2. DuoNebs as needed. 3. Aspirin 81 mg a day. 4. Dulcolax suppository p.r.n. 5. She was on Rocephin for her acute cystitis. I believe we can stop her antibiotic at this point. The last blood culture/urine cultures were in August 2016. We will stop the Rocephin. 6. Lyrica 75 mg p.o. at bedtime. 7. Pravachol 40 mg at bedtime. 8. MiraLAX 17 g b.i.d. 9. Paxil 10 mg b.i.d. 10. We will switch her to Protonix 40 mg p.o. daily. 11. Mycostatin powder topically which she is taking now. 12. Multivitamin. 13. Melatonin 3 mg at bedtime. 14. Antivert 25 mg p.o. daily. 15. Milk of Magnesia as needed. 16. Lidocaine or Lidoderm patch I think once a day. 17. Icar 1 b.i.d. 18. Anusol HC suppositories q.8 hours p.r.n. 19. Folic acid 1 mg a day. 20. Colace 100 mg b.i.d.
--- NOTE | 2016-12-20 19:09 | OPERATIVE NOTE ---
PROCEDURE DATE: 12/01/2016 SURGEON: Leif Pope MD PREOPERATIVE DIAGNOSIS: Gross hematuria with clot retention. PRIMARY PROCEDURE: 1. Cystoscopy. 2. Bilateral retrograde pyelograms. 3. Bilateral diagnostic ureteroscopies. 4. Placement of 6-Russian-24 cm right ureteral stent. 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 Her final pathology did not reveal renal cell carcinoma. She has had recurrent UTIs and was seen by me on periodic basis, but had missed her appointments. She apparently now resides in a [facility]. She developed gross hematuria with clots and was eventually brought by her family. Upon admission, she had CT abdomen and pelvis on 11/29/2016, which revealed mild right hydroureteronephrosis as well as hyperdense material in the urinary bladder, which was concerning for either clot or a mass. She presents for workup. FINDINGS: Her bladder mucosa was fairly hyperemic which is consistent with hemorrhagic cystitis, right retrograde pyelogram, was fairly unremarkable with exception to possible mild or small filling defect, right diagnostic ureteroscopy was negative, left retrograde pyelogram, of the ureteral stump was fairly unremarkable and diagnostic left ureteroscopy was normal. Adequate stent placement. DETAILS OF OPERATION: After obtaining informed consent, patient was brought to the operating room. Perioperative antibiotics and laryngeal mask anesthesia were administered. She was placed in lithotomy position prepped and draped in sterile fashion. A 21-Russian rigid cystoscope was used to gain access to the bladder, which was then examined in systematic fashion. She did have hyperemic mucosa throughout her bladder, not just on the posterior wall where the Corado catheter was. I did not visualize any discrete mucosal raised lesions. We turned attention to the right ureteral orifice which was cannulated with a cone-tipped ureteral catheter. 50% diluted Omnipaque dye was used to perform right retrograde pyelogram. It revealed delicate caliceal system without evidence of hydroureteronephrosis as was shown on CT scan from 2 days before. She did have what appeared to be a small filling defect toward the lower pole, I have aspirated several times as well as repeated injection of the dye, but could not make the defect moved. Hence, I was concerned it was not a bubble. We then performed left retrograde pyelogram of the ureteral stump in the same fashion. It revealed no evidence of significant hydroureteronephrosis or definitive filling defects. We then elected to proceed with diagnostic ureteroscopy due to suspicion for filling defect. A PTFE wire was advanced into the right ureteral orifice up to the level right renal pelvis. This was followed by a double floppy wire. The flexible ureteroscope was then used over the double floppy wire and was advanced all the way up to the level of the right renal pelvis. In a direct fashion, I examined all minor calices as well as the renal pelvis and the rest of the ureter. I could not identify any mucosal lesions, polyps or significant stones. We then turned attention to the left ureteral stump. A rigid ureteroscope was introduced up to the level of the superior aspect of the stump. I again could not find any mucosal lesions, polyps or stones. The ureteroscope was removed. We placed a 6-Russian-24 cm ureteral stent on the right in a standard fashion with the proximal coil position confirmed fluoroscopically and distal coil directly visualized. This was done, over the wire via the cystoscope. We presume she has hemorrhagic cystitis as I could not find any other evidence of her gross hematuria. She did have a few clots which were irrigated. The cystoscope was removed and Corado catheter was reinserted. String was left attached to the stent. She was extubated and taken to PACU for further recovery. ESTIMATED BLOOD LOSS: 1 mL of active blood loss. COMPLICATIONS: None. DISPOSITION: To postanesthesia care unit, subsequently floor for observation with Corado catheter to gravity drainage and stent secured with the string.
== END 2016-12-09 14:49 | DRG 690 ==
LOC: EDBD → ED 21:17 → 4N 11-30 01:53
PROVIDERS: ATTEND Emergency Medicine
PROC: 30233N1 Transfusion of Nonautologous Red Blood Cells into Peripheral Vein, Percutaneous Approach (ICD-10-PCS; 2016-11-30)
PROC: BT141ZZ Fluoroscopy of Kidneys, Ureters and Bladder using Low Osmolar Contrast (ICD-10-PCS; 2016-12-01)
PROC: 0T768DZ Dilation of Right Ureter with Intraluminal Device, Via Natural or Artificial Opening Endoscopic (ICD-10-PCS; principal; 2016-12-01 13:17)
PROC: 0DB68ZX Excision of Stomach, Via Natural or Artificial Opening Endoscopic, Diagnostic (ICD-10-PCS; 2016-12-08)
DX: N30.91 Cystitis, unspecified with hematuria (principal); N17.9 Acute kidney failure, unspecified; N13.30 Unspecified hydronephrosis; I50.9 Heart failure, unspecified; Z68.41 Body mass index [BMI] 40.0-44.9, adult; D62 Acute posthemorrhagic anemia; I11.0 Hypertensive heart disease with heart failure; G62.9 Polyneuropathy, unspecified; E66.01 Morbid (severe) obesity due to excess calories; M06.9 Rheumatoid arthritis, unspecified; E78.5 Hyperlipidemia, unspecified; J45.909 Unspecified asthma, uncomplicated; K21.9 Gastro-esophageal reflux disease without esophagitis; M19.90 Unspecified osteoarthritis, unspecified site; Z96.652 Presence of left artificial knee joint; J44.9 Chronic obstructive pulmonary disease, unspecified; K44.9 Diaphragmatic hernia without obstruction or gangrene; K29.70 Gastritis, unspecified, without bleeding; F43.21 Adjustment disorder with depressed mood; K59.09 Other constipation; K57.30 Diverticulosis of large intestine without perforation or abscess without bleeding; Z90.5 Acquired absence of kidney; Z87.440 Personal history of urinary (tract) infections; Z79.2 Long term (current) use of antibiotics; Z87.891 Personal history of nicotine dependence; Z82.49 Family history of ischemic heart disease and other diseases of the circulatory system; Z79.899 Other long term (current) drug therapy; Z79.82 Long term (current) use of aspirin; Z86.711 Personal history of pulmonary embolism; Z86.73 Personal history of transient ischemic attack (TIA), and cerebral infarction without residual deficits; Z86.718 Personal history of other venous thrombosis and embolism
CPT/HCPCS: 36430; 74020; 74176; 74420; 80048; 80053; 81001; 82150; 82550; 82607; 82728; 82746; 83036; 83540; 83550; 83690; 83735; 83880; 84443; 84484; 85025; 85027; 85610; 85730; 86850; 86870; 86900; 86901; 86922; 88305; 88312; 93005; 94640; 94761; 94799; 96365; C2617; C9113; J0330; J0696; J1100; J1756; J2405; J2550; J3010; J7030; J7040; J7050; P9016; P9612; Q9966; 97110-GP; 97530-GP; J2710; S0164